=== PATIENT | female | born 1960 | race African-American/Black ===

== ENCOUNTER 2020-08-09 15:17 | Inpatient (IN) | payer OTHER ==
[~2020-08-09] VITALS: Ht 162.6 cm; Wt 96.0 kg
[2020-08-09] MEDS ORDERED: PROBIOTIC1 EAC7 PO (18:05)
[2020-08-09] MEDS ORDERED: RESTASIS1 EACH OPHTHALMIC (18:06)
[2020-08-09] MEDS ORDERED: BUPROPION HCL150 MG PO (18:06)
[2020-08-09] MEDS ORDERED: ALLEGRA-D 12 H1 EAC2 PO (18:07)
[2020-08-09] MEDS ORDERED: ALLER-FLO15.8 ML NASAL (18:08)
[2020-08-09] MEDS ORDERED: GABAPENTIN800 M1 PO (18:09)
[2020-08-09] MEDS ORDERED: OLOPATADINE HC2.5 ML OPHTHALMIC (18:09)
[2020-08-09] MEDS ORDERED: FAMOTIDINE 20 M20 MG PO (18:10)
[2020-08-09] MEDS ORDERED: ALPRAZOLAM XR3 MG PO (18:10)
[2020-08-09] MEDS ORDERED: LISINOPRIL20 MG PO (18:11)
[2020-08-09] MEDS ORDERED: NORCO 10-325 T1 EACH PO (18:11)
[2020-08-09] MEDS ORDERED: SERTRALINE HCL100 MG PO (18:12)
--- NOTE | 2020-08-10 06:26 | NUR ---
PT ARRIVED 0600 PT PRESENTED DROWSY, AAOX4, VS B/P 139/64, P 67, R16, T97, 02 SAT 98% RA RR EVEN AND NONLABORED ON RA. PT REPORTS SI AND CURRENTLY ON 1:1, [facility] PAGED HCP AND AWAITING RETURN CALL. ZERO S/S OF ACUTE DISTRESS NOTED.
[2020-08-10 09:19] VITALS: BP 137/67
[2020-08-10] MEDS ORDERED: ALPRAZOLAM 0.50.5 M1 PO (12:22)
[2020-08-10 12:50] VITALS: BP 140/70
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
--- NOTE | 2020-08-10 18:16 | NUR ---
Admitted from home via [facility] and [facility]. Alert and orientated X 4, denies SI/HI at this time but does report SI with plan to OD r/t legal, potential incarcination issues. Does have family hx of suicide and past suicide attempt via overdose. Breath sounds clear. Reg HR auscultated. Color pink with brisk capillary refill and palpable peripheral pulses with +1 edema in lower legs. Independent with voiding. Active bowel sounds over soft, rounded abdomen. Reports BM yesterday. Erythema and excoriation in R inguinal fold, cleaned and nystatin applied. Slow, steady gait. Tearful. States she is nauseated, zofran given per order after Dr. Dooley and Dr. Love notified. Later reported back pain of 8/10 and stated it was siatica pain. Med given per PRN order. Out to dining room for meals, otherwise isolated in room. Took shower independently after dinner. No s/o distress.
[2020-08-10 19:36] VITALS: BP 120/50
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
[2020-08-11 09:19] VITALS: BP 125/62
[2020-08-11 11:27] VITALS: BP 125/62
--- NOTE | 2020-08-11 11:39 | NUR ---
ASSUMED CARE AT 0700 TODAY. PT. UP FOR BREAKFAST. SHE RETURNED TO HER ROOM AND TO BED AFTER EATING. SHE C/O H/A AND NAUSEA. SHE WAS GIVEN HYDROCODONE AND ONDASTETRON. SHE TOOK HER MORNING MEDICATIONS WITHOUT PROBLEMS NOTED. SHE IS TO BE PLACED ON A ROOM LOCK OUT FOR MEALS/GROUPS. SHE IS ORIENTED X4.
[2020-08-11 20:12] VITALS: BP 114/57
[2020-08-12 03:30] VITALS: BP 114/57
--- NOTE | 2020-08-12 06:13 | NUR ---
Assumed care of patient at start of shift. Pt resting in bed at start of shift. Pt A&Ox4. Pt ambulatory. Pt complaint with medication and assessment. Pt reports anxiety at a 7/10. Denies depression. Pt denies thoughts of SI/HI. Pt reports headache on right side. PRN Tramadol for headache and hydroxizine for anxiety given with HS meds. Pt has been calm and cooperative. Pt woke up at 330 with siatic pain and given heat pack for pain relief. Pt returned to bed. Will continue to monitor for any changes in mood/behavior and monitor for safety per unit protocols.
[2020-08-12 09:12] VITALS: BP 153/81
[2020-08-12 09:23] VITALS: BP 153/81
--- NOTE | 2020-08-12 11:01 | NUR ---
1100 RESUMMED CARE FROM OVERNIGHT SHIFT THIS AM, PATIENT IN ROOM LYING QUIET. PATIENT ALERT ORIENTED TIMES 4 PATIENT DENIES SI/HI/AH/VH AT PRESENT. PATIENTS ABDOMEN SOFT ROUND BOWEL SOUNDS PRESENT LUNGS CLEAR. PATIENT WOULD LIKE TO GET HER CHARGES TAKEN CARE OF WHEN SHE GETS OUT. SHE IS CALM COOPERATIVE PARTICIPATES IN GROUP WILL CONTINUE TO MONITOR PATIENT FOR SAFETY AND BEHAVIORS.
--- NOTE | 2020-08-12 14:57 | NUR ---
MAGGI contacted Pt's case resolution specialist, Harriet, to inform about dicharge. Harriet stated she could transport the Pt. Harriet also stated she would schedule pt a follow up psychiatric appointment. MAGGI attempted to contact [facility] directly to schedule follow up. Maggi left a message with the scheduling desk for a call back. As of this note MAGGI has not recieved a call back. Pt will d/c on 08/13/20 @ 1000 am to home with continued otpt psychiatric services and case mangement with [facility].
[2020-08-12 19:45] VITALS: BP 109/70
--- NOTE | 2020-08-13 05:14 | NUR ---
Assumed care of pt @ 1900. Pt calm et cooperative this shift. Took medications whole without difficulty. Ambulates the halls ad aurelio with steady gait. Socialized with peers in dayroom until HS. VSWNL. Health assessment with no abnormalities noted at present time. Denies SI/HI/AVH at present time. Currently resting in bed with eyes closed. Will continue to monitor per unit protocol.
[2020-08-13 08:16] VITALS: BP 117/63
[2020-08-13 09:00] VITALS: BP 117/63
[2020-08-13] MEDS ORDERED: BUPROPION HCL150 MG PO (09:36)
[2020-08-13] MEDS ORDERED: NICOTINE TRANSD21 M1 TRANSDERM (09:36)
[2020-08-13] MEDS ORDERED: VISTARIL 25 MG25 M1 PO (09:36)
[2020-08-13] MEDS ORDERED: NEURONTIN 300M300 M2 PO (09:36)
[2020-08-13 10:17] VITALS: BP 117/63
--- NOTE | 2020-08-13 12:17 | NUR ---
Assumed Pt care at 0700am. Pt was sitting in the day room. Assessment completed, VSS. Pt denies SI/HI. Pt took her medication whole, Pt was calm and co-operative. There was no c/o of pain prior to dicharge. Pt belongings were handed to her. At approximately 1040 Pt was discharged home. Pt was accompanied by a RESIDENTIAL DOOR UNIT INSTALLER to ER were Pt was picked by Pt case planner. Discharge instruction was given to Pt. Pt verbally expressed understanding of discharge instructions.
== END 2020-08-13 10:40 | disposition home or self-care (01) | DRG 885 ==
LOC: SBH
PROVIDERS: ADMIT Psychiatry & Neurology Psychiatry; ATTEND Psychiatry & Neurology Psychiatry
DX: F31.9 Bipolar disorder, unspecified (principal); U07.1 COVID-19; R45.851 Suicidal ideations; R45.850 Homicidal ideations; K21.9 Gastro-esophageal reflux disease without esophagitis; M79.7 Fibromyalgia; G89.29 Other chronic pain; I10 Essential (primary) hypertension; E78.5 Hyperlipidemia, unspecified; F41.9 Anxiety disorder, unspecified; E11.9 Type 2 diabetes mellitus without complications; F19.10 Other psychoactive substance abuse, uncomplicated; Z86.16 Personal history of COVID-19; F17.210 Nicotine dependence, cigarettes, uncomplicated; J45.909 Unspecified asthma, uncomplicated; Z79.899 Other long term (current) drug therapy; Z71.51 Drug abuse counseling and surveillance of drug abuser; Z88.8 Allergy status to other drugs, medicaments and biological substances; Z90.710 Acquired absence of both cervix and uterus; Z71.6 Tobacco abuse counseling
CPT/HCPCS: 10880

== ENCOUNTER 2020-08-09 16:04 | Emergency (ER) | payer OTHER ==
[~2020-08-09] VITALS: Ht 167.6 cm; Wt 89.4 kg
[2020-08-09] MEDS ORDERED: PROBIOTIC1 EAC7 PO (18:05)
[2020-08-09] MEDS ORDERED: RESTASIS1 EACH OPHTHALMIC (18:06)
[2020-08-09] MEDS ORDERED: BUPROPION HCL150 MG PO (18:06)
[2020-08-09] MEDS ORDERED: ALLEGRA-D 12 H1 EAC2 PO (18:07)
[2020-08-09] MEDS ORDERED: ALLER-FLO15.8 ML NASAL (18:08)
[2020-08-09] MEDS ORDERED: OLOPATADINE HC2.5 ML OPHTHALMIC (18:09)
[2020-08-09] MEDS ORDERED: GABAPENTIN800 M1 PO (18:09)
[2020-08-09] MEDS ORDERED: ALPRAZOLAM XR3 MG PO (18:10)
[2020-08-09] MEDS ORDERED: FAMOTIDINE 20 M20 MG PO (18:10)
[2020-08-09] MEDS ORDERED: NORCO 10-325 T1 EACH PO (18:11)
[2020-08-09] MEDS ORDERED: LISINOPRIL20 MG PO (18:11)
[2020-08-09] MEDS ORDERED: SERTRALINE HCL100 MG PO (18:12)
[2020-08-10 05:25] LABS: CREATININE 0.7 mg/dL (0.6-1.0); POTASSIUM 3.7 mmol/L (3.5-5.1)
[2020-08-10 05:27] LABS: HEMATOCRIT 38.8 % (37.0-47.0); HEMOGLOBIN 12.8 gm/dL (12.0-15.0); MCHC 32.9 g/dL (28.0-37.0); MCV 97.3 fL (80.0-100.0); RBC 3.99 mil/uL (4.20-5.00); RDW 13.7 % (10.5-14.5)
[2020-08-10 05:52] VITALS: BP 141/82
[2020-08-10] MEDS ORDERED: ALPRAZOLAM 0.50.5 M1 PO (12:22)
== END 2020-08-10 05:55 | disposition still patient (30) ==
LOC: ER 16:04
PROVIDERS: Nurse Practitioner Family
DX: R45.851 Suicidal ideations (principal); Z20.828 Contact with and (suspected) exposure to other viral communicable diseases; R45.850 Homicidal ideations; Z79.899 Other long term (current) drug therapy

== ENCOUNTER 2020-11-01 01:52 | Inpatient (IN) | payer OTHER ==
[~2020-11-01] VITALS: Ht 162.6 cm; Wt 92.5 kg
[~2020-11-01 01:52] MED LIST: ALLEGRA-D 12 H1 EAC2 PO; ALLER-FLO15.8 ML NASAL; ALPRAZOLAM 0.50.5 M1 PO; ALPRAZOLAM XR3 MG PO; BUPROPION HCL150 MG PO; FAMOTIDINE 20 M20 MG PO; GABAPENTIN800 M1 PO; LISINOPRIL20 MG PO; NEURONTIN 300M300 M2 PO; NICOTINE TRANSD21 M1 TRANSDERM; NORCO 10-325 T1 EACH PO; OLOPATADINE HC2.5 ML OPHTHALMIC; PROBIOTIC1 EAC7 PO; RESTASIS1 EACH OPHTHALMIC; SERTRALINE HCL100 MG PO; VISTARIL 25 MG25 M1 PO
[2020-11-02 04:52] VITALS: BP 121/61
--- NOTE | 2020-11-02 05:24 | NUR ---
PATIENT TRANSFERRED FROM [facility] TO [facility] ED FOR COVID PCR TEST. AFTER RECIEVING NEGATIVE RESULT PT WAS BROUGHT BY WC TO [facility]. SHE VOLUNTARLY SIGNED HERSELF IN. PATIENT WITH LEFT LEG SCIATICA. STATES SHE HASN'T TAKEN HER MEDS FOR PAIN (VICODIN) FOR 3 DAYS AND STATES NONE WAS GIVEN TO HER IN ED. PT HAS A HX OF SUBSTANCE ABUSE WITH METHAMPHETAMINES AND MARIJUANA. PT IS A SMOKER. WARM MOIST HEAT APPLIED TO AREA WITH SOME RELIEF. PATIENT ADMITTED WITH DIAGNOSIS OF SI. SHE HAS A MEDICAL HX OF ASTHMA, BACK PAIN, DISC DISPLACEMENT, FIBROMYALGIA, GERD, HLD, SEASONAL ALLERGIES, SHINGLES. PSYCH HX OF BIPOLAR 1, SI, DEPRESSION. LIMITED ASSESSMENT D/T PATIENT HAVING SCIATICA PAIN AND WANTING TO LAY DOWN AND REST. A FEW BRUISES ON ARMS SHE STATES SHE BRUISES EASILY. PATIENT IS CALM AND COOPERATIVE. PATIENT STATES SHE WANTED TO BECAUSE SHE FEELS SHE IS A BURDEN AND DOESN'T HAVE A PLACE TO LIVE. SHE DID NOT TELL ME HER PLAN BUT HOSPITAL NOTES FROM ED STATE SHE THOUGHT ABOUT PLACING HER 3 DOGS AND HERSELF IN THE CAR IN THE GARAGE AND STARTING THE MOTOR. PATIENT AMBULATES INDEPENDENTLY. SHE IS CONTINENT. STATES SHE HAD LAST BM 11/01/20. NO EDEMA. LUNGS CLEAR/DIMINISHED BREATH SOUNDS. HEART S1S2 AND REGULAR. PATIENT IS SLEEPING AT THIS TIME. BED IN LOW POSITION. FREQUENT CHECKS. PATIENT DOOR IS OPEN AND BY NURSE STATION. ROUNDS TO ASSESS STATUS AND SAFETY OF PATIENT.
[2020-11-02 09:41] VITALS: BP 124/84
[2020-11-02 10:32] VITALS: BP 124/84
--- NOTE | 2020-11-02 11:50 | NUR ---
1150 RESUMMED CARE FROM OVERNIGHT THIS AM, PATIENT IN ROOM SLEEPING. PATIENT ALERT ORIENTED TIMES 4 PATIENT STATES SHE STILL HAS SUICIDAL IDEATIONS AT PRESENT. PATIENT STATES SHE HAS LOST HER PLACE AND HAS NO WHERE TO GO; SHE WAS STAYING WITH A FRIEND. THE FRIEND PUT HER OUT PATIENTS ABDOMEN SOFT BOWEL SOUNDS PRESENT. PATIENTS LUNGS CLEAR PATIENT HAS BEEN USING ALCOHOL AND OPIATES. PATIENT HAS SCIATICA ON LT SIDE WARM WASH CLOTHS APPLIED TO HELP WITH DISCOMFORT. PATIENT STATES SHE FEELS HOPELESS AND DEPRESSSED I AM ENCOURAGING PATIENT TO GET UP AND PARTICIPATE IN GROUP. WILL CONTINUE TO MONITOR PATIENT FOR SAFETY AND BEHAVIORS.
--- NOTE | 2020-11-02 13:32 | NUR ---
Assess due to admit to [facility] for SI. Hx: COVID+, IBS, BIPOLAR, substance abuse. On regular diet and has eaten 100% of first few meals on the unit. Wt obese, BMI 35. Wts in Jul 2020 averaged 197-211 lb. Current wt is 204 lb. Low nutrition risk
--- NOTE | 2020-11-02 15:35 | NUR ---
MAGGI contacted 's [facility] Mason Foreman/Superintendant, Harriet Lopez [phone]. MAGGI left a message for a call back
[2020-11-02 19:20] VITALS: BP 115/69
[2020-11-02 20:30] VITALS: BP 115/69
--- NOTE | 2020-11-03 03:32 | NUR ---
PATIENT HAS BEEN IN HER ROOM ALL EVENING. SHE HAS BEEN CALM AND JUST WANTING TO REST AND SLEEP. SHE IS INDEPENDENT WITH CARES AND TOILETS HERSELF. SHE DID COME TO THE NURSE STATION AND ASKED TO USE THE PHONE. SHE CALLED A FRIEND AND TALKED FOR A FEW MINUTES AND RETURNED PHONE TO NURSE STATION. PATIENT REQUESTED A WARM PACK FOR HER LEFT SCIATICA FOR COMFORT AND ACHING. PT AWOKE AROUND 0200 MOANING AND C/0 OF BACK PAIN AND NEEDED PAIN MED FOR IT. SHE WENT TO THE BATHROOM AND BACK TO BED. WHEN THIS NURSE RETURNED WITH THE MEDS SHE WAS SLEEPING. I CALLED HER NAME OUT TWICE BUT SHE WAS SNORING. MEDS TAKEN BACK TO NURSE STATION. PT DENIES SI/HI/AVH. ROUTINE ROUNDS TO ASSESS SAFETY AND STATUS OF PATIENT.
--- NOTE | 2020-11-03 04:29 | NUR ---
PATIENT AWOKE AND HAVING PAIN IN BACK AND SCIATICA DOWN LEFT LEG. PT STATES SHE HAD DONE PT YESTERDAY AND DIDN'T REALIZE SHE HAD WORKED THOSE MUSCLES IN HER BACK. TYLENOL 650MG PO GIVEN AT THIS TIME WITH HYDROXIZINE 25MG PO. MUSCLE RUB APPLIED TO BACK AND LEFT BUTTOCK. WARM COMPRESS TO HIP AREA ON LEFT. PATIENT BACK TO BED RESTING. ENCOURAGED HER TO GET OUT OF BED MORE THRU DAY.
[2020-11-03 11:12] VITALS: BP 109/64
--- NOTE | 2020-11-03 13:10 | NUR ---
PATIENT WAS UP IN ROOM COMPLETING MORNING ADL WHEN CARE ASSUMED. SHE IS ALERT, AND ORIENTED X 3-4, ABLE TO VOICE NEED. PATIENT AMBULATES INDEPENDENTLY, GAIT STEADY. PATIENT TOOK ALL MEDICATION WHOLE WITHOUT DIFFICULTY, SHE IS EATING MEALS, AND DRINKING FLUID WELL. PATIENT DENIES SUICIDAL/HOMICIDAL IDEATION, STATES "I DON'T LIKE MYSELF TOO MUCH TODAY" WOULD NOT ELABORATE. PATIENT RATES BOTH DEPRESSION/ANXIETY 8/10, RATES PAIN 8/10. MOOD IS DEPRESSED/ANGRY, AFFECT IS SAD/FLAT. THERAPY WORKING WITH PATIENT, INTERMITTENT TEARFULNESS NOTED. PATIENT CURRENTLY IN BED RESTING PER THERAPY INSTRUCTIONS. PHYSICAL THERAPIST (DARIA) CALLED AND STATES THAT PATIENT NEED ANTIINFLAMATORY MEDICATION, AND MUSCLE RELAXER TO HELP WITH PATIENT'S MUSCLE INFLAMATION. DR. ACEVES NOTIFIED, HE STATES HE WILL TAKE CARE OF THAT. NO SIGN OF ACUTE DISTRESS NOTED AT THIS TIME, WILL MONITOR FOR SAFETY.
--- NOTE | 2020-11-03 14:13 | NUR ---
MAGGI recieved a call from Loretta, [facility] case operator. stated the Pt was living with her daughter but had issues there. Then the Pt was suppose to move into her mother's home but there were issues of mold. Pt also stated a susbstance abuse treatment with [facility]. MAGGI informed when ready for discharge the Pt would be offered placement a homeless longterm with recommendation for continued outpatient mentl health services. MAGGI will keep Harriet informed of the Pt's treatment.
[2020-11-03 19:37] VITALS: BP 104/61
--- NOTE | 2020-11-03 23:42 | NUR ---
Alert and orientated X4. Labile. Calm and interacting with peers and then tearful and anxious. States she just wants it to end. Denies current SI but anxiety in "over the top" r/t not having a place to live. Also reports siatica pain on R side, ibuprofen and other prn meds given per order. Ambulates with regular, steady gait. Spoke at length with daughter via phone. Breath sounds clear. Reg HR auscultated. Color pink with brisk capillary refill and palpable peripheral pulses. Independent with voiding. Reports BM earlier today. Active bowel sounds over soft, rounded abdomen. Currently sleeping without s/o distress.
[2020-11-04 10:11] VITALS: BP 146/84
--- NOTE | 2020-11-04 17:56 | NUR ---
FLAT AFFECT-SLIGHT DELAY TO VERBAL RESPONSES. DENIES SI/SH TODAY. MINIMAL NOTED INTERACTION WITH PEERS AND DOES ANSWER INQUIRES FROM STAFF WITH MINIMAL VERBAL RESPONSES. DOES REPORT PAIN TO LOWER EXTREMETIES/KNEES-REQUESTED AND RECEIVED FLEXARIL 5MG PO PRN FOR REPORTS OF PAIN -APPETITE IS FAIR-DID REPORT BRIEF EPISODE OF NAUSEA AFTER LUNCH BUT DENIES HAVING EMESIS. GAIT IS STEADY WITHOUT ASSISTIVE DEVICES
[2020-11-04 19:40] VITALS: BP 127/77
--- NOTE | 2020-11-04 21:05 | H ---
[facility] [place] [address] HISTORY AND PHYSICAL Name: CRUZ FUNG Room #: 528B-B ADM IN M.R.#: [id number] Admission: 11/02/20 Attend Phys: Vinay Corcoran DO Discharge: Date of : 60 Report #: [id number] THIS REPORT FOR: cc: NO FAMILY PHYSICIAN or PCP NO FAMILY PHYSICIAN or PCP Vinay oCrcoran DO ~ DATE OF SERVICE: 11/02/2020 INPATIENT PSYCHIATRIC EVALUATION ATTENDING PSYCHIATRIST: Vinay Corcoran DO. CAP BLOCKER: Donnie Stevens MD and his hospitalist team. REASON FOR ADMISSION: Suicidal ideation. SOURCES OF INFORMATION: Records from [facility], chart review from previous admission in July of this year on the [facility] Unit. HISTORY OF PRESENT ILLNESS: A 60-year-old female, obese, currently single, homeless, living in a car, presented to [facility] with suicidal ideation with plan to asphyxiate in the car. The patient reports she has been feeling this way over the past 3-4 days. She reports she was evicted from where she was living and her friends are probably irritated with her. The patient reports she has been living in her car. She reports she has been having passive thoughts of wanting to kill her ex- and boyfriend, but she has no plan and would not do. She reports some paranoia that everyone is out to get her. She reports decreased hygiene, increased sleep and varying appetite. The patient reports increased depression and anxiety. She reports that she has been using alcohol and marijuana over the past month. The patient told the ER screenerMadeleine " I feel worthless. I feel like I do not have any choice. " . Admits she was evicted this Sunday. She reports the eviction related to allowing an ex-boyfriend to stay where she lives again at least for 6 months. She reports she had firearms in the past, but they were taken away. She reports she overdosed on pills 3-4 years ago. She had, 08/2020, stay at [facility]; 05/2020, stay at [facility]; 4 years ago, had a suicide attempt and was hospitalized at [facility]. Last used alcohol 3 days ago, marijuana cannabis 1 month ago, methamphetamine 4 days ago where the case investigator was at [facility]. PAST MEDICAL HISTORY: Includes asthma, back pain, somnolence, displaced disk in the lumbar spine from myalgia, gave the history of kidney infection, hypercholesterolemia, hypertension, irritable bowel syndrome, kidney stones, [facility] [address] [place] [address] HISTORY AND PHYSICAL Name: CRUZ FUNG Room #: 528B-B ADM IN M.R.#: [id number] Admission: 11/02/20 Attend Phys: Vinay Corcoran DO Discharge: Date of : 60 Report #: [id number] paresthesia and pelvic fracture. PSYCHIATRIC HISTORY: Includes history of bipolar 1 disorder, depression, panic attacks. PROCEDURAL HISTORY: Herniorrhaphy with da Stacie in 02/2019, colon biopsy, polypectomy 01/2019, EGD 01/2019 as well, cystoscopy, lithotripsy in 03/2015; cystoscopy, retrograde pyelogram 03/2015. REVIEW OF SYSTEMS: From the ER, CONSTITUTIONAL: Denies any recent fever, chills, swelling or substantial change in weight. The patient has not complained of recent visual changes. ENT: Does not complaint of recent cold symptoms, sore throat or ear pain. RESPIRATORY: Does not complain of recent change in breathing, dyspnea or cough. CARDIOVASCULAR: Does not complain of chest pain, palpitations or syncope. GENITOURINARY: Does not complain of recent abdominal pain, constipation, diarrhea, nausea or vomiting. Denies recent changes in normal bowel pattern. GENITOURINARY: Does not complain of recent changes in in urination habits or hematuria. EXTREMITIES: Does not complain of any pain or swelling. BACK: Does not complain of recent changes in medical condition. NEUROLOGIC: No recent headache, no extremity weakness or tingling. SKIN: Does not complain of new rashes or discoloration. PSYCHIATRIC: As above. All others are negative. HOME MEDICATIONS: Include Wellbutrin-XL 150 mg p.o. daily, Restasis, ____, gabapentin, olopatadine ophthalmic, Flomax, Flonase, hydrocodone 10/325 and lisinopril. ALLERGIES: CEFTRIAXONE, itching the skin; PRAVASTATIN, swelling, muscle pain. SOCIAL HISTORY: Alcohol, 1-2 times per week. Tobacco, 10 or more cigarettes per day/greater than half pack. PHYSICAL EXAMINATION: Physical exam was grossly normal. BP was 146/85 in the ER. LABORATORY DATA: From the ER, H and H 13.3 and 41.3, white blood cell count 6.0, platelet count 291. Additional laboratories, sodium 139, potassium 3.7, chloride 107, bicarbonate 23, calcium 8.9, magnesium 3.1, glucose 79, BUN 7, creatinine 0.6, estimated GFR greater than 60. Ethanol less than 10. Weight 90.9, height 160.6 cm. UDS detected amphetamines, detected methamphetamines. Here at [place], temperature 36.3, pulse 63, respirations 16, BP 124/84, O2 sat 96%. [facility] [address] [place] [address] HISTORY AND PHYSICAL Name: CRUZ FUNG Room #: 528B-B ADM IN M.R.#: [id number] Admission: 11/02/20 Attend Phys: Vinay Corcoran DO Discharge: Date of : 60 Report #: [id number] I particular bag at her discharge records when Dr. Dooley had her in July and she is on sertraline 50 mg oral daily, probiotic, cyclosporine, Flonase, loratadine, famotidine, lisinopril as well as Neurontin 300 mg 3 times a day. She reports significant sciatic pain, some difficulty walking, although had an increase her Neurontin to 400 mg 3 times a day. MENTAL STATUS EXAMINATION: A well-developed, unkempt, obese female appearing older than stated age. Attention fair. Concentration fair. Speech is normal in rate, volume and tone. Thought process: Linear and goal directed. Thought content: Focused on somatic concerns this morning, endorsed SI. Denied intent to harm herself, though denied HI. Denied auditory, visual or tactile hallucinations. Mood and affect is restricted and congruent depressed. Insight and judgment impaired. Fund of knowledge, no greater than average. FORMULATION: A 60-year-old female admitted with SI, moving in a car and homeless, recent eviction. DIAGNOSES: At this time as follows: Unspecified mood disorder, substance use disorder for amphetamines, methamphetamines and homelessness. MEDICAL COMORBIDITIES: Include obesity, neuropathy. PLAN: The patient is admitted voluntarily to the [facility] Unit at [facility], hospitalist consulted, increased her gabapentin 400 mg 3 times a day for pain and mood stabilization. Given the patient's recent drug use, she actually is having post dopamine surge effect as the patient is very depressed, irritable, somnolent after psychostimulant binge. Efforts will be made to direct her to homeless snf. ESTIMATED LENGTH OF STAY: 3-5 days. Time spent on this case is at least 60 minutes, greater than 50% time spent on review of records, coordination of care. <ELECTRONICALLY SIGNED> By: Vinay Corcoran DO 11/04/20 2105 [id number] Vinay Corcoran DO /nt
--- NOTE | 2020-11-05 03:36 | NUR ---
ASSUMED CARE FROM DAY SHIFT PT UP IN DAYROOM EATING SNACK C/O BACK PAIN ,SCHEDULED MOTRIN GIVEN PRESCRIBED. PT CALM COOPERQATIVE, NOTED FLACT AFFECT. PT RESTED WELL THROUGHOUT FREQ ROUNDING AT THIS TIME OF NOTE.
[2020-11-05 10:03] VITALS: BP 126/75
[2020-11-05 10:15] VITALS: BP 90/46
[2020-11-05 10:18] VITALS: BP 108/71
--- NOTE | 2020-11-05 13:28 | NUR ---
MAGGI spoke with Pt about discharge. Pt stated she had an appointment with her minesweeping officer on Wednesday 11/08 @ 1400 or 1430. Pt stated she needed to be discharged on Sunday. Pt will set discharge for Sunday. SW did call Pt's child support case officer, , concerning the discharge and to schedule follow up appts with psychiatry. SW left a message for a call back. SW will continue to follow.
[2020-11-05 13:42] VITALS: BP 108/71
--- NOTE | 2020-11-05 14:16 | NUR ---
Alert and orientated X4. States pain on L leg is at typical level, 6/10. Denies SI/HI. Requesting shower before breakfast. After breakfast she reported diarrhea and then nausea. VS repeated. Zofran given per prn order. She then reported emesis x [address] Stevens notified of symptoms, no new orders. Was drinking chicken broth for lunch and taking small sips of water. Breath sounds clear. Reg HR auscultated. Color pink with brisk capillary refill and palpable peripheral pulses. No edema. Independent with voiding. Active bowel sounds over soft, rounded abdomen. Redness with mild excoriation under inguinal folds, cleaned, nystatin powder applied. In room sleeping at this time.
[2020-11-05 19:54] VITALS: BP 98/60
--- NOTE | 2020-11-05 22:33 | NUR ---
PT RESTING IN LOUNGE CHAIR IN DAY ROOM WATCHING TV. PT SITTING NEAR MALE PEER, VERBAL INTERACTIONS ABOUT TV SHOW. BLUNTED AFFECT. GOOD EYE CONTACT. COMPLIANT WITH MEDS AND HS SNACK.
[2020-11-06 08:34] VITALS: BP 108/72
--- NOTE | 2020-11-06 13:22 | NUR ---
Alert and orientated X4. Calm, cooperative and compliant. Concerned with where she will go after discharge d/t being homeless. States pain is about the same and that she feels much better than yesterday. Denies SI/HI. Breath sounds clear. Reg HR auscultated. Color pink with brisk capillary refill and palpable peripheral pulses. Independent with voiding. Active bowel sounds over soft, rounded abdomen. Reports BM yesterday AM. Concerned because she lost paper with phone numbers. Assisted with looking in room and then all the other pt rooms without success. Provided phone so that she could writed down numbers and then phone returned to locker.
[2020-11-06 20:07] VITALS: BP 113/70
--- NOTE | 2020-11-06 22:48 | NUR ---
Asking why Vicoden was not ordered here like it is when she is an outpatient. Explained risk of dependency which she said she understood. States she had good results with hydroxine for anxiety. States her pain in now worse. Sleeping without s/o distress upon reassessment.
[2020-11-07 10:03] VITALS: BP 124/82
--- NOTE | 2020-11-07 15:46 | NUR ---
SLIGHTLY MORE ANIMATED/VERBAL WHEN CONVERSING WITH NURSING STAFF DURING 1 TODAY. DENIES SI/SH. STATES FEELS THOUGH DEPRESSIVE SYMPTOMS "MAY BE A LITTLE BETTER" GLORIA ASKED TO RATE RATES DEPRESSION A 6 AND ANXIETY A 7-EXPLAINS INCREASED ANXIETY IS R/T UNKNOWN LIVING SITUATION AT TIME OF DC. REFUSES 1500 IBUPROFEN STATING "DOESN'T HELP". CONSTRICTED AFFECT-MINIMAL PEER INTERACTION-CONTIUES TO STRUCTURE FREE TIME IN ROOM NAPPING.
[2020-11-07 21:13] VITALS: BP 110/71
--- NOTE | 2020-11-08 02:48 | NUR ---
PATIENT HAS BEEN IN HER ROOM AND SLEEPING ALL EVENING. SHE HAS BEEN CALM AND COOPERATIVE AND PLEASANT. SHE TOOK HER MEDS WHOLE WITH WATER. SHE IS A/0X4. PATIENT ON SCHEDULED IBUPROFEN 600MG PO FOR BLE'S PAIN. SCIATICA IN LEFT LE. PATIENT SLEEPING AT THIS TIME. TO D/C TO SENIOR CARE TODAY. ROUTINE ROUNDS TO ASSESS SAFETY AND STATUS OF PATIENT. DENIES SI/HI. CONTINUING TO MONITOR.
[2020-11-08] MEDS ORDERED: LISINOPRIL20 MG PO (07:05)
[2020-11-08] MEDS ORDERED: NEURONTIN 400400 M1 PO (07:05)
[2020-11-08] MEDS ORDERED: LEXAPRO 10 MG T10 MG PO (07:06)
[2020-11-08] MEDS ORDERED: FLONASE 0.05%50 MCG NASAL (07:07)
[2020-11-08] MEDS ORDERED: NYAMYC15 GM TOP (07:09)
[2020-11-08 07:56] VITALS: BP 108/71
[2020-11-08 08:36] VITALS: BP 126/78
--- NOTE | 2020-11-08 09:50 | NUR ---
DISCHARGE INSTRUCTIONS REVIEWED WITHPATIENT INCLUDING MEDICATIONS-F/U RECOMMENDATIONS ETC-SHE STATES UNDERSTANDING AND DENIES QUESTIONS/CONCERNS.STATES PLAN TO GO LIVE WITH DAUGHTERFOR AWHILE ON DISCHARGE,DENIES SI/SH/HI. DOES REPORT IMPROVED MOOD AT TIME OF DC-DENIES PAIN-
[2020-11-08] MEDS ORDERED: VOLTAREN GEL 1100 G1 TOP (10:27)
--- NOTE | 2020-11-09 10:22 | D ---
[facility] [place] [address] DISCHARGE SUMMARY Name: CRUZ FUNG Room #: 528B-B [facility] IN M.R.#: [id number] Admission: 11/02/20 Attend Phys: Vinay Corcoran DO Discharge: 11/08/20 Date of : 60 Report #: [id number] THIS REPORT FOR: cc: NO FAMILY PHYSICIAN or PCP NO FAMILY PHYSICIAN or PCP Vinay Corcoran DO ~ DATE OF SERVICE: 11/08/2020 INPATIENT PSYCHIATRIC DISCHARGE SUMMARY ATTENDING PSYCHIATRIST: Vinay Corcoran DO. 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 ADDITIONAL PSYCHIATRIC DIAGNOSIS: Unspecified depression, improved. MEDICAL COMORBIDITIES: Include hypertension, stable; nausea; diarrhea; irritable bowel syndrome; chronic pain; fibromyalgia; history of asthma. DISCHARGE PLAN: The patient was initially planned [facility], however, the patient will be staying with her daughter. The patient has an appointment with her law enforcement officer 11/08/2020 at 1430 hours. The patient will get psychiatric services with [facility]. She has a medical case manager named, Loretta Patino at [phone], who will be helping her schedule. DISCHARGE MEDICATIONS: As follows: Cyclosporine drops one drop ophthalmic twice daily for eyes, famotidine 20 mg oral daily for GERD, lisinopril 20 mg oral daily for hypertension, gabapentin 400 mg oral 3 times per day, this is increased from the lower dose this admission for pain and mood stabilization, Lexapro 10 mg oral daily for depression. The patient had been on Wellbutrin, but given her history of seizures, combined with her meth use, we switched her to escitalopram, Flonase 2 sprays each nostril daily for allergies, nystatin 1 gram topical 3 times a day to affected area. I believe this was inguinal dermatitis for another 10 days. DISCHARGE DIET: Regular. ACTIVITY LEVEL: As tolerated. No alcohol, no drugs. The patient was given crisis suicide hotline information. LABORATORY DATA: This admission, hematology was not done in-house. Additionally, no new chemistries and COVID-19 PCR serology ____ admission and [facility] [address] [place] [address] DISCHARGE SUMMARY Name: CRUZ FUNG Room #: 528B-B [facility] IN ..#: [id number] Admission: 11/02/20 Attend Phys: Vinay Corcoran DO Discharge: 11/08/20 Date of : 60 Report #: [id number] that was negative. The patient came from outside hospital. REASON FOR ADMISSION: A 60-year-old female originally in [facility]. She initially homeless, living in car, had suicidal ideation with plan to asphyxiate herself. She has been feeling this way for 3-4 days. She reported recent eviction. Also, the patient had been hospitalized here in July of this year under similar circumstances. HOSPITAL COURSE: The patient was admitted to the Geriatric Psychiatry Unit. The patient's home medication Wellbutrin was discontinued due to seizure, she is started on citalopram as a replacement. Gabapentin was increased from 300 to 400 mg 3 times a day for pain and mood stabilization benefit. The patient did not have overt cravings or withdrawal symptoms during the admission, the depression effect of doing binges from methamphetamines were discussed at length, the life-threatening effects of this were reviewed. The patient has considerable psychosocial stressors with her living ____she has made this winter. At the day of discharge, she was hopeful, future oriented, not suicidal, not homicidal. PHYSICAL EXAMINATION: VITAL SIGNS: On the day of discharge are as follows: Temperature 36.5, pulse 69, respirations 16, BP 126/78. MUSCULOSKELETAL: Normal gait and station. MENTAL STATUS EXAMINATION: This is a well-developed, fairly nourished, obese female appearing at least stated age. Attention fair. Concentration limited. Speech is normal rate, tone. Thought process is linear and goal directed. Thought content focused on seeing her law enforcement officer. No psychomotor agitation. No psychomotor retardation. Denied SI or HI. Denied auditory, visual, or tactile hallucinations. Mood and affect constricted, congruent. Insight fair to limited. Judgment fair. Fund of knowledge, no greater than average. PROGNOSIS: For this patient is guarded given the recent repeated admissions, illicit substance use and poor coping skills. <ELECTRONICALLY SIGNED> By: Vinay Corcoran DO 11/09/20 1022 27 51 Vinay Corcoran DO /nt
== END 2020-11-08 10:50 | disposition home or self-care (01) | DRG 885 ==
LOC: SBH
PROVIDERS: ADMIT Psychiatry & Neurology Psychiatry; ATTEND Psychiatry & Neurology Psychiatry
DX: F31.9 Bipolar disorder, unspecified (principal); R45.851 Suicidal ideations; F15.24 Other stimulant dependence with stimulant-induced mood disorder; I10 Essential (primary) hypertension; G89.29 Other chronic pain; M79.7 Fibromyalgia; J45.909 Unspecified asthma, uncomplicated; E66.9 Obesity, unspecified; F41.9 Anxiety disorder, unspecified; F12.90 Cannabis use, unspecified, uncomplicated; K58.0 Irritable bowel syndrome with diarrhea; E78.00 Pure hypercholesterolemia, unspecified; G62.9 Polyneuropathy, unspecified; K21.9 Gastro-esophageal reflux disease without esophagitis; E78.5 Hyperlipidemia, unspecified; Z68.35 Body mass index [BMI] 35.0-35.9, adult; Z88.1 Allergy status to other antibiotic agents; Z90.710 Acquired absence of both cervix and uterus; Z87.442 Personal history of urinary calculi
CPT/HCPCS: 10880

== ENCOUNTER 2020-11-01 20:17 | Emergency (ER) | payer OTHER ==
[~2020-11-01] VITALS: Ht 165.1 cm; Wt 90.7 kg
[2020-11-02 04:26] VITALS: BP 138/87
--- NOTE | 2020-11-02 07:03 | EKG ---
[facility] [place] [address] ELECTROCARDIOGRAM REPORT Name: CRUZ FUNG [id number] Admission: 11/01/20 Attend Phys: Discharge: 11/02/20 Date of : 60 Report #: [id number] [facility] ED Test Date: 2020-11-01 Test Time: 21:49:00 Pat Name: CRUZ FUNG Department: Room: Gender: F Garment Turner: LIT : 1960 Requested By: Isatu Krishnamurthy Order Number: [id number] MD: Flash Teixeira Measurements Intervals [place] Rate: 73 P: 52 UT: 153 QRS: -8 QRSD: 79 T: 53 QT: 415 QTc: 458 Interpretive Statements Sinus rhythm Probable left atrial enlargement Abnormal R-wave progression, early transition Minimal ST depression Baseline wander in lead(s) II,III,aVL,aVF No previous ECG available for comparison Electronically Signed On 11-02-2020 7:03:41 CDT by Flash Teixeira [email or web address] <ELECTRONICALLY SIGNED> By: Flash Teixeira MD, [facility] 11/02/20 07 48 48 Flash Teixeira MD, [facility] /EPI
== END 2020-11-02 04:28 ==
LOC: ER 20:17
PROVIDERS: Emergency Medicine
DX: R45.851 Suicidal ideations (principal); I10 Essential (primary) hypertension; E78.5 Hyperlipidemia, unspecified; K21.9 Gastro-esophageal reflux disease without esophagitis; Z90.710 Acquired absence of both cervix and uterus; Z79.899 Other long term (current) drug therapy; Z88.8 Allergy status to other drugs, medicaments and biological substances; Z20.822 Contact with and (suspected) exposure to COVID-19